=== PATIENT | female | born 1970 | race Caucasian/White ===

== ENCOUNTER 2019-04-11 10:28 | Emergency (ER) | payer SELFPAY ==
[2019-04-11 11:38] LABS: ABSOLUTE EOSINOPHILS # (AUTO) 0.1 10^3/uL (0.0-0.6); ABSOLUTE MONOCYTES (AUTO) 0.5 10^3/uL (0.1-1.4); ABSOLUTE NEUT (AUTO) 5.9 10^3/uL (1.7-8.2); BASOPHILS % (AUTO) 0.5 % (0-2); EOSINOPHILS % (AUTO) 1.4 % (0-6); LYMPHOCYTES % (AUTO) 13.5 % (13-45); MEAN CORPUSCULAR HEMOGLOBIN 30.9 pg (27.0-33.4); MEAN CORPUSCULAR HGB CONC 33.2 g/dL (32.0-36.0); MEAN CORPUSCULAR VOLUME 93 fl (80-97); MONOCYTES % (AUTO) 7.2 % (3-13); PLATELET COUNT 190 10^3/uL (150-450); RED CELL DISTRIBUTION WIDTH 13.6 % (11.5-14.0); SEGMENTED NEUTROPHILS % (AUTO) 77.4 % (42-78); TOTAL CELLS COUNTED % (AUTO) 100 %; WHITE BLOOD COUNT 7.6 10^3/uL (4.0-10.5)
[2019-04-11 11:49] LABS: APPEARANCE,URINE SLIGHTLY-CLOUDY; BILIRUBIN,URINE NEGATIVE (NEGATIVE); COLOR,URINE YELLOW; GLUCOSE, URINE NEGATIVE (NEGATIVE); KETONES,URINE NEGATIVE (NEGATIVE); LEUKOCYTE ESTERASE,URINE TRACE (NEGATIVE); NITRITE,URINE NEGATIVE (NEGATIVE); PROTEIN,URINE 30 mg/dL (NEGATIVE); URINE SPECIFIC GRAVITY 1.019; UROBILINOGEN,URINE NEGATIVE mg/dL (<2.0)
[2019-04-11 12:01] LABS: ALBUMIN 3.2 g/dL (3.5-5.0); ALKALINE PHOSPHATASE 45 U/L (38-126); ANION GAP 7 (5-19); ASPARTATE AMINO TRANSFERASE 30 U/L (14-36); BILIRUBIN,DIRECT 0.3 mg/dL (0.0-0.4); BILIRUBIN,TOTAL 0.3 mg/dL (0.2-1.3); BLOOD UREA NITROGEN 11 mg/dL (7-20); CALCIUM 8.6 mg/dL (8.4-10.2); CARBON DIOXIDE 25 mmol/L (22-30); CHLORIDE 106 mmol/L (98-107); GLUCOSE 99 mg/dL (75-110); POTASSIUM 4.5 mmol/L (3.6-5.0); TOTAL PROTEIN 6.2 g/dL (6.3-8.2)
[2019-04-11] MEDS ORDERED: ONDANSETRON HCL INJ/PF 4 MG/2 ML SDV IV ONE (12:49)
[2019-04-11] MEDS ORDERED: AZITHROMYCIN 250 MG TABLET PO ONE (12:49)
[2019-04-11] MEDS ORDERED: CEFTRIAXONE INJ 250 MG VIAL IV ONE (12:49)
[2019-04-11] MEDS ORDERED: KETOROLAC TROMETHAMINE INJ/PF 30 MG/1 ML SDV IV ONE (12:49)
[2019-04-11] MEDS ORDERED: LIDOCAINE 2% VISCOUS SOLN 20 ML UDCUP PO ONE (13:46)
[2019-04-11] MEDS ORDERED: NAPROXEN 375 MG TABLET PO ONE (13:46)
[2019-04-11] MEDS ORDERED: MAG HYDROX/AL HYDROX/SIMETH SUSP 30 ML UDCUP PO ONE (13:46)
--- NOTE | 2019-04-11 13:56 | ER Document Report ---
ED General - General Chief Complaint: Abdominal Pain Stated Complaint: ABDOMINAL PAIN,BLOOD IN URINE Time Seen by Provider: 04/11/19 12:13 - HPI Notes: Patient is a 48-year-old female who presents to the emergency department for e valuation of generalized abdominal pain and right flank pain. She states that she has had right flank pain for several days. She was actually evaluated for it in [place] and no clear cause was found. She states that since then she is developed generalized abdominal pain that she describes as a cramping. She is had nausea and multiple episodes of emesis. She cannot describe the emesis for me, states she "has not looked at it." Normal bowel movements. She denies any urinary symptoms. She denies any vaginal discharge or sores. She states that her boyfriend has been "sleeping around" and she would like to be checked for STDs as well. Patient is currently at [facility]. She admits that she recently relapsed. She had a long-term history of drug abuse, was clean, then about a month ago started using crack cocaine, opiates, methamphetamines. - Related Data Allergies/Adverse Reactions: aspirin Allergy (Verified 04/11/19 13:10) hydrocodone [From Vicodin] Allergy (Verified 04/11/19 13:10) ketorolac [From Toradol] Allergy (Verified 04/11/19 13:09) metoclopramide [From Reglan] Allergy (Verified 04/11/19 13:09) oxycodone [From Percocet] Allergy (Verified 04/11/19 13:10) tramadol Allergy (Verified 04/11/19 13:10) Past Medical History - General Information source: Patient - Social History Smoking Status: Current Every Day Smoker Drug Abuse: Cocaine, Methamphetamine, Prescription drugs Family History: Reviewed & Not Pertinent Patient has suicidal ideation: No Patient has homicidal ideation: No Renal/ Medical History: Reports: Hx Kidney Stones Psychiatric Medical History: Reports: Hx Attention Deficit Hyperactivity Disorder Review of Systems - Review of Systems Constitutional: No symptoms reported EENT: No symptoms reported Cardiovascular: No symptoms reported Respiratory: No symptoms reported Gastrointestinal: See HPI Genitourinary: No symptoms reported Female Genitourinary: No symptoms reported Musculoskeletal: No symptoms reported Skin: No symptoms reported Neurological/Psychological: See HPI Physical Exam - Vital signs Vitals: Temp Pulse Resp BP Pulse Ox 97.6 F 64 18 123/89 H 100 04/11/19 11:06 04/11/19 11:06 04/11/19 11:06 04/11/19 11:06 04/11/19 11:06 - Notes Notes: This is a 48-year-old female who appears much older than her stated age in no acute distress. Vital signs reviewed, please refer to chart. Head is normocephalic, atraumatic. Pupils equal round, reactive to light. Neck is supple without meningismus. Heart is regular rate and rhythm. Lungs are clear to auscultation bilaterally. Abdomen is soft, diffusely tender without rebound or guarding, normoactive bowel sounds throughout. Extremities without cyanosis, clubbing. Posterior calves are nontender. Peripheral pulses are equal. Skin is warm and dry. Patient is awake, alert, neurological exam is nonfocal. Course - Re-evaluation Re-evalutation: 04/11/19 13:57 Patient presents to the emergency department for evaluation. Laboratory investigations were obtained. She is given IV fluids. She was ordered medication, then altered her allergy list. She was further medicated with a GI cocktail and Naprosyn, she states that this helps her with her pain at home. My suspicion is that the pain and vomiting that she is experiencing is secondary to opiate withdrawal. Serial abdominal exams are non-surgical. Patient denies any vaginal discharge or symptoms. I did again treat her empirically for gonorrhea and chlamydia as she was concerned about this possibility. She is told she needs to follow-up in regards to further STD testing, as these do not come back acutely. She voiced understanding to this. Otherwise, she will be discharged back to the care of [facility] for further treatment of her substance abuse issues. She is to return to the ED with worsening. 04/11/19 14:16 Patient is given second urine sample, but results are pending. Again patient has been treated empirically for gonorrhea and chlamydia, she understands that results are not back and is stable for discharge. Again, abdominal exam is nonsurgical. - Vital Signs Vital signs: Temp Pulse Resp BP Pulse Ox 97.6 F 64 18 123/89 H 100 04/11/19 11:06 04/11/19 11:06 04/11/19 11:06 04/11/19 11:06 04/11/19 11:06 - Laboratory Result Diagrams: 04/11/19 11:24 04/11/19 11:24 Laboratory results interpreted by me: 04/11/19 04/11/19 11:24 11:25 Total Protein 6.2 L Albumin 3.2 L Urine Protein 30 H Ur Leukocyte Esterase TRACE H Discharge - Discharge Clinical Impression: Generalized abdominal pain, Nausea and vomiting Condition: Stable Disposition: OTHER Instructions: Abdominal Pain ([facility]), Antinausea Medication ([facility]), Intravenous (IV) Fluids ([facility]), Vomiting ([facility]) Additional Instructions: You were treated here for gonorrhea and chlamydia. Please be advised that there are multiple other STDs that can be transmitted. These require blood tests and closer follow-up. Please note this is best taken care of by a primary care provider who can follow-up in regards to these results. Otherwise, stay hydrated with small, frequent sips of fluids. Continue to seek treatment for yo ur substance abuse issues. If you develop worsening or new concerning symptoms of any sort, return immediately to the emergency department for evaluation. Otherwise, follow-up with primary care this week.
[2019-04-11 14:24] LABS: CHLAM PCR NOT DETECTED (NOT DETECT)
[2019-04-11 14:55] VITALS: BP 142/78
== END 2019-04-11 14:55 | disposition other institution (70) ==
LOC: ER 10:28
DX: R10.84 Generalized abdominal pain (principal); R11.2 Nausea with vomiting, unspecified; F17.200 Nicotine dependence, unspecified, uncomplicated; Z88.6 Allergy status to analgesic agent; Z87.442 Personal history of urinary calculi
CPT/HCPCS: 99284; 96375; 96365; 36415; 83690; 85025; 80053; 81001; 87491; 87591; J3490 ×2; J2405; J0696